=== PATIENT | male | born 1965 | race Two or more races ===

== ENCOUNTER 2020-11-11 19:18 | Emergency (ER) | payer MEDICARE, OTHER ==
[~2020-11-11] VITALS: Ht 175.3 cm; Wt 83.9 kg
--- NOTE | 2020-11-11 19:26 | NUR ---
pt bibra c/o heroine overdose. Pt given narcan in the field. Pt aaxo4, breathing evenly and unlabored. Pt attached to monitor and pox. MD at bedside for eval. Pt given blanket and call light within reach
[2020-11-11] MEDS ORDERED: NALO4SPR NS (20:24)
--- NOTE | 2020-11-11 21:19 | NUR ---
sister, som [phone]
--- NOTE | 2020-11-12 03:15 | NUR ---
pt awake and alert. Needs met
--- NOTE | 2020-11-12 03:18 | NUR ---
Patient discharged to home in stable condition. Written and verbal after care instructions given. Patient verbalizes understanding of instruction. pt ambulatory with a steady gait
--- NOTE | 2020-11-12 03:27 | NUR ---
called davi kearns 30 min pickup
[2020-11-12 03:59] VITALS: BP 117/80
== END 2020-11-12 03:50 | disposition home or self-care (01) ==
LOC: ER 19:22
DX: T40.1X1A Poisoning by heroin, accidental (unintentional), initial encounter (principal); I10 Essential (primary) hypertension; Y92.89 Other specified places as the place of occurrence of the external cause